=== PATIENT | female | born 1980 | race Caucasian/White ===

== ENCOUNTER 2021-02-03 21:10 | Observation (INO) | payer BC ==
[2021-02-03] MEDS ORDERED: MORPHINE SULFATE 4 MG/ML SYRINGE IV STA (21:39)
[2021-02-03] MEDS ORDERED: SODIUM CHLORIDE 0.9% 1,000 ML IV STA (21:39)
--- NOTE | 2021-02-03 21:59 | ED ---
Abdominal Pain HPI - General Chief Complaint: Abdominal Pain Stated Complaint: Abd pain Time Seen by Provider: 02/03/21 21:37 Source: patient, family, RN notes reviewed, old records reviewed Mode of arrival: ambulatory Limitations: no limitations - History of Present Illness Initial Comments: This is a 40-year-old female DF for evaluation patient is multiple complaints of abdominal pain severe right lower quadrant abdominal pain as well as right upper quadrant abdominal pain. Positive nausea no vomiting decreased bowel movements. Pain for a few days now progressively worsening. History of similar pain. No prior surgeries. Patient does have chills and swelling but denies fever MD Complaint: abdominal pain -: days(s) Location: diffuse, RLQ Radiation: RUQ Severity: severe Severity scale (1-10): 9 Quality: sharp Consistency: constant Improves With: nothing Worsens With: nothing Context: other (none) Associated Symptoms: nausea, constipation Treatments Prior to Arrival: other (none) - Related Data Home Medications Medication Instructions Recorded Confirmed Estarylla Control Pill 1 tab PO DAILY 01/14/20 01/14/20 Omeprazole 20 mg PO DAILY 01/14/20 01/14/20 Allergies Allergy/AdvReac Type Severity Reaction Status Date / Time No Known Allergies Allergy Verified 01/14/20 13:47 Review of Systems ROS Statement: Those systems with pertinent positive or pertinent negative responses have been documented in the HPI. ROS Other: All systems not noted in ROS Statement are negative. Past Medical History Additional Past Medical History / Comment(s): migraines, diff swallowing foot and pills, History of Any Multi-Drug Resistant Organisms: None Reported Additional Past Surgical History / Comment(s): oral surgery Past Anesthesia/Blood Transfusion Reactions: No Reported Reaction Past Psychological History: Anxiety Smoking Status: Vaper Past Alcohol Use History: None Reported Past Drug Use History: None Reported - Past Family History Father Family Medical History: Cancer General Exam Limitations: no limitations General appearance: alert, in no apparent distress, anxious Head exam: Present: atraumatic, normocephalic, normal inspection Eye exam: Present: normal appearance, PERRL, EOMI. Absent: scleral icterus, conjunctival injection, periorbital swelling ENT exam: Present: normal exam, mucous membranes moist Neck exam: Present: normal inspection. Absent: tenderness, meningismus, lymphadenopathy Respiratory exam: Present: normal lung sounds bilaterally. Absent: respiratory distress, wheezes, rales, rhonchi, stridor Cardiovascular Exam: Present: normal rhythm, tachycardia, normal heart sounds. Absent: systolic murmur, diastolic murmur, rubs, gallop, clicks GI/Abdominal exam: Present: soft, distended, tenderness, guarding (Right lower quadrant), normal bowel sounds. Absent: rebound, rigid Extremities exam: Present: normal inspection, full ROM, normal capillary refill. Absent: tenderness, pedal edema, joint swelling, calf tenderness Back exam: Present: normal inspection Neurological exam: Present: alert, oriented X3, CN II-XII intact Psychiatric exam: Present: normal affect, normal mood Skin exam: Present: warm, dry, intact, normal color. Absent: rash Course Vital Signs 02/03/21 02/04/21 21:32 00:42 Temperature 98.6 F 98.9 F Pulse Rate 107 H 90 Respiratory 18 18 Rate Blood Pressure 133/80 122/77 O2 Sat by Pulse 98 97 Oximetry - Reevaluation(s) Reevaluation #1: 02/04/21 03:50 Medical record is reviewed Reevaluation #2: 02/04/21 03:51 Symptoms are significantly improved here in the ER Reevaluation #3: 02/04/21 03:51 Patient is informed of results and questions answered - Consultations Consultation #1: (Dr. Newton who will see the patient Medical Decision Making - Medical Decision Making 40 female at ER sudden onset abdominal pain right lower quadrant severe abdominal pain progressively worsening. Patient does have appendicitis and will be admitted for surgical evaluation management - Lab Data Result diagrams: 02/03/21 21:55 02/03/21 21:55 Lab Results 02/03/21 02/03/21 02/03/21 Range/Units 21:55 21:55 21:55 WBC 10.9 H (3.8-10.6) k/uL RBC 3.66 L (3.80-5.40) m/uL Hgb 12.3 (11.4-16.0) gm/dL Hct 35.3 (34.0-46.0) % MCV 96.5 (80.0-100.0) fL MCH 33.5 (25.0-35.0) pg MCHC 34.7 (31.0-37.0) g/dL RDW 12.0 (11.5-15.5) % Plt Count 194 (150-450) k/uL MPV 8.6 Neutrophils % 73 % Lymphocytes % 19 % Monocytes % 5 % Eosinophils % 2 % Basophils % 0 % Neutrophils # 7.9 H (1.3-7.7) k/uL Lymphocytes # 2.0 (1.0-4.8) k/uL Monocytes # 0.5 (0-1.0) k/uL Eosinophils # 0.2 (0-0.7) k/uL Basophils # 0.0 (0-0.2) k/uL Sodium 140 (137-145) mmol/L Potassium 3.6 (3.5-5.1) mmol/L Chloride 106 (98-107) mmol/L Carbon Dioxide 23 (22-30) mmol/L Anion Gap 11 mmol/L BUN 6 L (7-17) mg/dL Creatinine 0.62 (0.52-1.04) mg/dL Est GFR (CKD-EPI)AfAm >90 (>60 ml/min/1.73 sqM) Est GFR (CKD-EPI)NonAf >90 (>60 ml/min/1.73 sqM) Glucose 142 H (74-99) mg/dL Plasma Lactic Acid Rick (0.7-2.0) mmol/L Calcium 9.1 (8.4-10.2) mg/dL Total Bilirubin 0.3 (0.2-1.3) mg/dL AST 26 (14-36) U/L ALT 24 (4-34) U/L Alkaline Phosphatase 59 (38-126) U/L Creatine Kinase 74 (30-135) U/L Troponin I (0.000-0.034) ng/mL Total Protein 6.9 (6.3-8.2) g/dL Albumin 3.9 (3.5-5.0) g/dL Amylase 45 (30-110) U/L Lipase 95 (23-300) U/L Urine Color Yellow Urine Appearance Clear (Clear) Urine pH 5.5 (5.0-8.0) Ur Specific [place] 1.017 (1.001-1.035) Urine Protein Trace H (Negative) Urine Glucose (UA) Negative (Negative) Urine Ketones Negative (Negative) Urine Blood Small H (Negative) Urine Nitrite Negative (Negative) Urine Bilirubin Negative (Negative) Urine Urobilinogen 2.0 (<2.0) mg/dL Ur Leukocyte Esterase Negative (Negative) Urine RBC 1 (0-5) /hpf Urine WBC 1 (0-5) /hpf Ur Squamous Epith Cells <1 (0-4) /hpf Urine Mucus Few H (None) /hpf 02/03/21 02/03/21 Range/Units 21:55 21:55 WBC (3.8-10.6) k/uL RBC (3.80-5.40) m/uL Hgb (11.4-16.0) gm/dL Hct (34.0-46.0) % MCV (80.0-100.0) fL MCH (25.0-35.0) pg MCHC (31.0-37.0) g/dL RDW (11.5-15.5) % Plt Count (150-450) k/uL MPV Neutrophils % % Lymphocytes % % Monocytes % % Eosinophils % % Basophils % % Neutrophils # (1.3-7.7) k/uL Lymphocytes # (1.0-4.8) k/uL Monocytes # (0-1.0) k/uL Eosinophils # (0-0.7) k/uL Basophils # (0-0.2) k/uL Sodium (137-145) mmol/L Potassium (3.5-5.1) mmol/L Chloride (98-107) mmol/L Carbon Dioxide (22-30) mmol/L Anion Gap mmol/L BUN (7-17) mg/dL Creatinine (0.52-1.04) mg/dL Est GFR (CKD-EPI)AfAm (>60 ml/min/1.73 sqM) Est GFR (CKD-EPI)NonAf (>60 ml/min/1.73 sqM) Glucose (74-99) mg/dL Plasma Lactic Acid Rick 1.6 (0.7-2.0) mmol/L Calcium (8.4-10.2) mg/dL Total Bilirubin (0.2-1.3) mg/dL AST (14-36) U/L ALT (4-34) U/L Alkaline Phosphatase (38-126) U/L Creatine Kinase (30-135) U/L Troponin I <0.012 (0.000-0.034) ng/mL Total Protein (6.3-8.2) g/dL Albumin (3.5-5.0) g/dL Amylase (30-110) U/L Lipase (23-300) U/L Urine Color Urine Appearance (Clear) Urine pH (5.0-8.0) Ur Specific [place] (1.001-1.035) Urine Protein (Negative) Urine Glucose (UA) (Negative) Urine Ketones (Negative) Urine Blood (Negative) Urine Nitrite (Negative) Urine Bilirubin (Negative) Urine Urobilinogen (<2.0) mg/dL Ur Leukocyte Esterase (Negative) Urine RBC (0-5) /hpf Urine WBC (0-5) /hpf Ur Squamous Epith Cells (0-4) /hpf Urine Mucus (None) /hpf - Radiology Data Radiology results: report reviewed (CT abdomen and pelvis positive for acute appendicitis), image reviewed Disposition Clinical Impression: Acute appendicitis Disposition: ADMITTED IP TO THIS [facility] Condition: Good Is patient prescribed a controlled substance at d/c from ED?: No
[2021-02-03 22:19] LABS: Basophils % (A) 0 %; Eosinophils # (A) 0.2 k/uL (0-0.7); Eosinophils % (A) 2 %; HCT 35.3 % (34.0-46.0); HGB 12.3 gm/dL (11.4-16.0); Lymphocytes % (A) 19 %; MCH 33.5 pg (25.0-35.0); MCHC 34.7 g/dL (31.0-37.0); MCV 96.5 fL (80.0-100.0); Mean Platelet Volume 8.6; Monocytes # (A) 0.5 k/uL (0-1.0); Monocytes % (A) 5 %; Neutrophils # (A) 7.9 k/uL (1.3-7.7); Neutrophils % (A) 73 %; Platelet Count 194 k/uL (150-450); RBC 3.66 m/uL (3.80-5.40); WBC 10.9 k/uL (3.8-10.6)
[2021-02-03 22:23] LABS: Appearance,Urine Clear (Clear); Bilirubin,Urine Negative (Negative); Blood,Urine Small (Negative); Color,Urine Yellow; Glucose,Urine (UA) Negative (Negative); Ketones,Urine Negative (Negative); Leukocyte Esterase,Urine Negative (Negative); Mucus,Urine Few /hpf; Nitrite,Urine Negative (Negative); PH, Urine 5.5 (5.0-8.0); Protein,Urine Trace (Negative); RBC,Urine 1 /hpf (0-5); Specific Gravity,Urine 1.017 (1.001-1.035); Squamous Epithelial Cell,Urine <1 /hpf (0-4); WBC,Urine 1 /hpf (0-5)
[2021-02-03 22:29] LABS: ALT 24 U/L (4-34); AST 26 U/L (14-36); African American GFR (CKD) >90 (>60 ml/min/1.73 sqM); Albumin 3.9 g/dL (3.5-5.0); Alkaline Phosphatase 59 U/L (38-126); Amylase 45 U/L (30-110); Anion Gap 11 mmol/L; Blood Urea Nitrogen 6 mg/dL (7-17); Calcium 9.1 mg/dL (8.4-10.2); Carbon Dioxide 23 mmol/L (22-30); Chloride 106 mmol/L (98-107); Creatine Kinase 74 U/L (30-135); Glucose 142 mg/dL (74-99); Lipase 95 U/L (23-300); Non-African American GFR(CKD) >90 (>60 ml/min/1.73 sqM); Potassium 3.6 mmol/L (3.5-5.1); Sodium 140 mmol/L (137-145); Total Bilirubin 0.3 mg/dL (0.2-1.3); Total Protein 6.9 g/dL (6.3-8.2)
--- NOTE | 2021-02-03 23:04 | CT ---
EXAMINATION TYPE: CT abdomen pelvis w con DATE OF EXAM: 02/03/2021 COMPARISON: None HISTORY: Right lower quadrant pain CT DLP: mGycm Automated exposure control for dose reduction was used. CONTRAST: Performed , patient injected with mL of . Isovue 100 mL. FINDINGS: Lung bases are clear of consolidation. There is some mild atelectasis at the lung bases. There is fat ty infiltration of the liver. Heart appears normal. There is no pericardial effusion. There is fatty infiltration of the liver. Spleen stomach pancreas gallbladder appear normal. The bile ducts are not dilated. There is no adrenal mass. Kidneys show satisfactory contrast opacification. There is no hydronephrosi s. Ureters are not dilated. There is no retroperitoneal adenopathy. Bladder distends smoothly. Uterus is anteverted. There is no free fluid in the pelvis. There is no pelvic mass. There is fat stranding in the right lower quadrant. The terminal ileum appears normal. There appears to be enlarged appendix that measures 9 mm. There is no free air. There is no ascites. Delayed images show normal renal excretion. The lumbar vertebra have normal spacing and alignment. Posterior elements are intact. There is no com pression fracture. Bony pelvis is intact. The hip joints are intact. There is no hip dysplasia. IMPRESSION: Inflammatory changes posterior to the cecum consistent with appendicitis. Possible rupture. Fatty infiltration of the liver. Enlarged liver measures 21.5 cm.
--- NOTE | 2021-02-03 23:17 | US ---
EXAMINATION TYPE: US gallbladder DATE OF EXAM: 02/03/2021 COMPARISON: CT CLINICAL HISTORY: pain. Pain. EXAM MEASUREMENTS: Liver Length: 19.0 cm Gallbladder Wall: 0.22 cm CBD: Not visualized. Right Kidney: 11.0 x 6.6 x 4.9 cm Limited due to gas and patient body habitus. Pancreas: Not well visualized due to gas. Liver: Appears enlarged. Increased echogenicity and attenuation. Coarse echotexture. Gallbladder: Limited. Internal echoes seen versus artifact. Evidence for sonographic Ordonez's sign: No CBD: Not visualized. Right Kidney: No hydronephrosis or masses seen IMPRESSION: There is some fatty infiltration of liver. No definite gallstones seen. No dilated ducts. Common bile duct not visualized.
[2021-02-04] MEDS ORDERED: ONDANSETRON 4 MG/2 ML VIAL IVP PRN ×2 (00:13→16:06)
[2021-02-04] MEDS ORDERED: AMPICILLIN-SULBACTAM 3 GM in SODIUM CHLORIDE 0.9% 100 ML IVPB STA (00:14)
[2021-02-04] MEDS: SODIUM CHLORIDE 0.9% 1,000 ML IV SCH ×3 (00:40→18:02)
[2021-02-04] MEDS: MORPHINE SULFATE 4 MG/ML SYRINGE IV PRN ×3 (01:42→21:40)
[2021-02-04] MEDS: PANTOPRAZOLE 40 MG/10 ML VIAL IV SCH (07:49)
[2021-02-04] MEDS ORDERED: AMPICILLIN-SULBACTAM 3 GM in SODIUM CHLORIDE 0.9% 100 ML IVPB SCH (09:00)
[2021-02-04] MEDS: ACETAMINOPHEN TAB 500 MG TAB PO SCH ×2 (11:57→17:53)
[2021-02-04] MEDS: KETOROLAC 15 MG/ML 1 ML VIAL IVP SCH ×2 (11:58→17:52)
--- NOTE | 2021-02-04 16:06 | P.GSHP ---
History of Present Illness H&P Date: 02/04/21 She reports feeling better since admission. She had RLQ pain since , 4 days ago including right upper quadrant abdominal pain. No Crohns or ulcerative colitis in family history. No nausea or vomiting. She tolerated dinner last night prior to coming to the hospital. CT scan independently reviewed by me with inflammatory changes along the cecum and ascending colon. CT report with possible rupture. Clinical history suspicious for rupture. IV antibiotics as first line of treatment per discussion. Will re-evaluate abdominal pain for tomorrow. Persistent or worsening abdominal pain, then appendectomy described. All questions addressed. Past Medical History Additional Past Medical History / Comment(s): migraines, diff swallowing foot and pills, History of Any Multi-Drug Resistant Organisms: None Reported Additional Past Surgical History / Comment(s): oral surgery Past Anesthesia/Blood Transfusion Reactions: No Reported Reaction Past Psychological History: Anxiety Smoking Status: Vaper Past Alcohol Use History: None Reported Past Drug Use History: None Reported - Past Family History Father Family Medical History: Cancer Medications and Allergies Home Medications Medication Instructions Recorded Confirmed Type Estarylla Control Pill 1 tab PO DAILY 01/14/20 02/04/21 History Ibuprofen [Motrin Ib] 200 mg PO Q8H PRN 02/04/21 02/04/21 History Allergies Allergy/AdvReac Type Severity Reaction Status Date / Time No Known Allergies Allergy Verified 02/04/21 08:57 Surgical - Exam Vital Signs Temp Pulse Resp BP Pulse Ox 98.6 F 107 H 18 133/80 98 02/03/21 21:32 02/03/21 21:32 02/03/21 21:32 02/03/21 21:32 02/03/21 21:32 Results - Labs 02/03/21 21:55 02/03/21 21:55 Abnormal Lab Results - Last 24 Hours (Table) 02/03/21 02/03/21 02/03/21 Range/Units 21:55 21:55 21:55 WBC 10.9 H (3.8-10.6) k/uL RBC 3.66 L (3.80-5.40) m/uL Neutrophils # 7.9 H (1.3-7.7) k/uL BUN 6 L (7-17) mg/dL Glucose 142 H (74-99) mg/dL Urine Protein Trace H (Negative) Urine Blood Small H (Negative) Urine Mucus Few H (None) /hpf Diabetes panel 02/03/21 Range/Units 21:55 Sodium 140 (137-145) mmol/L Potassium 3.6 (3.5-5.1) mmol/L Chloride 106 (98-107) mmol/L Carbon Dioxide 23 (22-30) mmol/L BUN 6 L (7-17) mg/dL Creatinine 0.62 (0.52-1.04) mg/dL Glucose 142 H (74-99) mg/dL Calcium 9.1 (8.4-10.2) mg/dL AST 26 (14-36) U/L ALT 24 (4-34) U/L Alkaline Phosphatase 59 (38-126) U/L Total Protein 6.9 (6.3-8.2) g/dL Albumin 3.9 (3.5-5.0) g/dL Calcium panel 02/03/21 Range/Units 21:55 Calcium 9.1 (8.4-10.2) mg/dL Albumin 3.9 (3.5-5.0) g/dL Pituitary panel 02/03/21 Range/Units 21:55 Sodium 140 (137-145) mmol/L Potassium 3.6 (3.5-5.1) mmol/L Chloride 106 (98-107) mmol/L Carbon Dioxide 23 (22-30) mmol/L BUN 6 L (7-17) mg/dL Creatinine 0.62 (0.52-1.04) mg/dL Glucose 142 H (74-99) mg/dL Calcium 9.1 (8.4-10.2) mg/dL Adrenal panel 02/03/21 Range/Units 21:55 Sodium 140 (137-145) mmol/L Potassium 3.6 (3.5-5.1) mmol/L Chloride 106 (98-107) mmol/L Carbon Dioxide 23 (22-30) mmol/L BUN 6 L (7-17) mg/dL Creatinine 0.62 (0.52-1.04) mg/dL Glucose 142 H (74-99) mg/dL Calcium 9.1 (8.4-10.2) mg/dL Total Bilirubin 0.3 (0.2-1.3) mg/dL AST 26 (14-36) U/L ALT 24 (4-34) U/L Alkaline Phosphatase 59 (38-126) U/L Total Protein 6.9 (6.3-8.2) g/dL Albumin 3.9 (3.5-5.0) g/dL
[2021-02-04 17:01] LABS: Basophils # (A) 0.1 k/uL (0-0.2); Basophils % (A) 1 %; Eosinophils # (A) 0.3 k/uL (0-0.7); Eosinophils % (A) 4 %; HCT 35.9 % (34.0-46.0); HGB 12.3 gm/dL (11.4-16.0); Lymphocytes % (A) 25 %; MCH 33.4 pg (25.0-35.0); MCHC 34.2 g/dL (31.0-37.0); MCV 97.8 fL (80.0-100.0); Mean Platelet Volume 8.7; Monocytes # (A) 0.4 k/uL (0-1.0); Monocytes % (A) 6 %; Neutrophils # (A) 4.8 k/uL (1.3-7.7); Neutrophils % (A) 62 %; Platelet Count 218 k/uL (150-450); RBC 3.67 m/uL (3.80-5.40); RDW 11.9 % (11.5-15.5); WBC 7.8 k/uL (3.8-10.6)
[2021-02-04] MEDS: metroNIDAZOLE-NS PMX 500 MG in SALINE 1 100ML.BAG IVPB SCH (17:53)
[2021-02-05] MEDS: KETOROLAC 15 MG/ML 1 ML VIAL IVP SCH ×5 (00:14→23:30)
[2021-02-05] MEDS: ACETAMINOPHEN TAB 500 MG TAB PO SCH ×6 (00:15→23:32)
[2021-02-05] MEDS: metroNIDAZOLE-NS PMX 500 MG in SALINE 1 100ML.BAG IVPB SCH ×6 (00:15→23:53)
[2021-02-05] MEDS: SODIUM CHLORIDE 0.9% 1,000 ML IV SCH ×3 (00:16→17:00)
[2021-02-05] MEDS: PIPERACILLIN-TAZOBACTAM 3.375 GM in SODIUM CHLORIDE 0.9% 100 ML IVPB SCH ×3 (01:32→17:28)
[2021-02-05] MEDS: PANTOPRAZOLE 40 MG/10 ML VIAL IV SCH (08:14)
--- NOTE | 2021-02-05 08:16 | P.HPADDEND ---
H&P Addendum H&P Addendum Date: 02/05/21 Patient also complains of right lower quadrant bowel pain although white blood cell count normal. We'll proceed with robotic appendectomy. Patient confirms not eating breakfast this morning and last meal last night.
[2021-02-05 09:56] LABS: Basophils # (A) 0.03 X 10*3/uL (0.00-0.10); Basophils % (A) 0.5 %; Eosinophils # (A) 0.14 X 10*3/uL (0.04-0.35); Eosinophils % (A) 2.3 %; HCT 35.8 % (37.2-46.3); HGB 11.2 g/dL (12.0-15.0); Lymphocytes # (A) 1.22 X 10*3/uL (0.90-5.00); MCH 32.1 pg (27.0-32.0); MCHC 31.3 g/dL (32.0-37.0); MCV 102.6 fL (80.0-97.0); Mean Platelet Volume 11.6 fL (9.5-12.2); Monocytes # (A) 0.43 X 10*3/uL (0.20-1.00); Neutrophils # (A) 4.28 X 10*3/uL (1.80-7.70); Platelet Count 211 X 10*3/uL (140-440); RBC 3.49 X 10*6/uL (4.10-5.20); RDW 11.9 % (11.5-14.5); WBC 6.11 X 10*3/uL (4.50-10.00)
[2021-02-05 10:54] LABS: African American GFR (CKD) 131.2 (60.0-200.0); Albumin 3.4 g/dL (3.80-4.90); Albumin/Globulin Ratio 1.62 (1.60-3.17); Anion Gap 11.8 mmol/L (4.00-12.00); BUN/Creat Ratio 8.33 Ratio (12.00-20.00); Calcium 7.9 mg/dL (8.7-10.3); Carbon Dioxide 21.2 mmol/L (21.6-31.8); Globulin 2.1 g/dL (1.6-3.3); Non-African American GFR(CKD) 113.2 (60.0-200.0); Potassium 4.2 mmol/L (3.5-5.5); Total Bilirubin 0.2 mg/dL (0.2-1.2); Total Protein 5.5 g/dL (6.2-8.2)
[2021-02-05] MEDS ORDERED: IV FLUID CONTINUATION 1,000 ML IV ONE (12:22)
[2021-02-05] MEDS ORDERED: DEXAMETHASONE SOD PHOSPHATE 4 MG/ML 1 ML VIAL IVP ONE (12:55)
[2021-02-05] MEDS ORDERED: ONDANSETRON 4 MG/2 ML VIAL IVP ONE (12:55)
[2021-02-05] MEDS ORDERED: HEPARIN SODIUM,PORCINE/PF 5,000 UNIT/0.5 ML SYRINGE SQ ONE (13:03)
[2021-02-05] MEDS ORDERED: HEPARIN SODIUM,PORCINE 5,000 UNIT/ML 1 ML VIAL SQ ONE (13:50)
[2021-02-05] MEDS ORDERED: PROPOFOL 10 MG/ML 20 ML VIAL IV ONE (14:10)
[2021-02-05] MEDS ORDERED: fentaNYL (PF) 50 MCG/ML 2 ML AMP ONE (14:10)
[2021-02-05] MEDS ORDERED: NEOSTIGMINE 1 MG/ML 10 ML VIAL ONE (14:10)
[2021-02-05] MEDS ORDERED: LIDOCAINE 1% INJ 10MG/ML (20 ML MDV) ONE (14:10)
[2021-02-05] MEDS ORDERED: HYDROmorphone (PF) 1 MG/ML ONE (14:10)
[2021-02-05] MEDS ORDERED: GLYCOPYRROLATE 0.2 MG/ML 2 ML VIAL ONE (14:10)
[2021-02-05] MEDS ORDERED: SUCCINYLCHOLINE CHLORIDE 100 MG/5 ML SYR IV ONE (14:10)
[2021-02-05] MEDS ORDERED: MIDAZOLAM 2 MG/2 ML VIAL ONE (14:10)
[2021-02-05] MEDS ORDERED: ROCURONIUM 10 MG/ML (5 ML VIAL) IV ONE (14:10)
[2021-02-05] MEDS ORDERED: SODIUM CHLORIDE 0.9% 100 ML with ceFAZolin 2,000 MG IV ONE ×4 (14:36)
[2021-02-05] MEDS ORDERED: BUPIVACAINE (PF) 0.25% 30 ML VIAL SQ ONE ×2 (14:40→14:43)
[2021-02-05] MEDS ORDERED: NALOXONE 0.4 MG/ML 1 ML VIAL IV PRN (15:45)
[2021-02-05] MEDS ORDERED: ACETAMINOPHEN IV (For NPO) 1,000 MG in EMPTY BAG 1 BAG IVPB ONE (15:45)
--- NOTE | 2021-02-05 15:57 | P.OP ---
Date of Procedure: 02/05/21 Description of Procedure: SURGEON: OMAR VALDIVIA MD Preoperative Diagnosis: 1. Acute appendicitis 2. Migraines Postoperative Diagnosis: 1. Acute appendicitis 2. Migraines 3. Hemoperitoneum right upper quadrant 4. Peritoneal adhesions 5. Hepatomegaly with fatty liver disease Procedure(s) Performed: 1. Robotic-assisted daVinci Xi laparoscopic appendectomy 2. Robotic-assisted daVinci Xi laparoscopic lysis of adhesions 3. Drainage of localized hemoperitoneum right upper quadrant Anesthesia: GETA, local Estimated Blood Loss (ml): 5 Pathology: other (appendix), anaerobic and aerobic culture peritoneal fluid Condition: stable Disposition: floor Operative Findings: 1. Acute appendicitis with severe periappendicitis and adhesions right lower quadrant 2. Terminal ileum unremarkable 3. Cecum unremarkable 4. No inguinal hernias 5. Localized hemoperitoneum at right upper quadrant drained. 6. Moderate yellow deposits with enlarged liver consistent with hepatomegaly with fatty liver disease. 7. INDICATIONS: The patient is a 40-year-old female who presents with acute appen dicitis. Benefits and risks, including infection, open surgery, and bleeding for additional surgery was discussed at length. Informed consent was obtained. All questions of the patient and family were answered. DESCRIPTION: The patient was transferred to the operating room and placed in supine position. The patient had previously voided. The abdomen was then prepped and draped in standard sterile fashion as Ioban was placed along the abdomen to minimize any contamination of skin floor. After a timeout protocol was performed, attention was then brought to the left upper quadrant whereby a 0 degree 5 mm laparoscopic trocar entry was performed. The abdominal cavity was entered and insufflated to 12 mmHg pressure, which was tolerated well. Diagnostic laparoscopy demonstrated no injury to bowel, viscera or mesentery. The liver was enlarged and fatty deposits consistent with fatty liver disease and hepatomegaly. Hemoperitoneum along the right side of the liver was identified. Next a robotic 8-mm trocar was placed along the left lower quadrant, 10-cm lateral to the midline. A 12 mm port was placed along the left upper quadrant and another 8-mm port left lateral abdominal wall. Ports were placed 8 cm apart from each other including 15-20 cm away from the target anatomy of the right pelvis. The patient was then placed in Trendelenburg position at least 7 down and right side up at least 7. The robotic da Bennie XI system was primed and docked from the left side of the patient. Using atraumatic graspers and vessel sealer, the robotic system was docked and primed as described. Instruments were interchanged by the design assistant including graspers, robotic stapler and vessel sealer. Next, attention was brought to identify the cecum. A systematic view within the abdominal cavity was started with the small bowel which was unremarkable. The base of the cecum was unremarkable. Left inguinal area was unremarkable. The right groin was unremarkable. The appendix was retrocecal coursing towards right upper quadrant behind the ascending colon with additional dissection required. Ssevere inflammation including localized adhesions of the right lower quadrant was confirmed. The tip of the appendix was dissected from its surrounding tissue with early necrosis along the tip of the appendix. The base of the appendix was unremarkable. The appendix was dissected free from its surrounding tissues. The appendix pocket was irrigated and drained of hemoperitoneum along the right upper quadrant. Blue 45 mm robotic staple loads were fired along the base of the appendix. The staple line was hemostatic. Hemostasis was checked prior to undocking the robot. The robot was undocked. I re-scrubbed into the case. The specimen was removed from the abdominal cavity with an Endo Catch bag through the 12 mm trocar at the left upper quadrant. The port site was closed with 0 Vicryl and Maximiliano Chen. All instruments and pneumoperitoneum were evacuated from the abdominal cavity. Local anesthetic was infiltrated to all wounds for postop analgesia. All incisions were also cleansed with diluted hydrogen peroxide. The incisions were closed with 4-0 Monocryl. Exofin glue was applied to the rest of the skin incisions. The patient had tolerated the procedure well. The patient was extubated successfully. The patient was transferred to the postanesthesia care unit in stable condition. Plan - Discharge Summary Discharge Rx Participant: Yes New Discharge Prescriptions: No Action Estarylla Control Pill 1 tab PO DAILY Ibuprofen [Motrin Ib] 200 mg PO Q8H PRN PRN Reason: Pain Discharge Medication List Estarylla Control Pill 1 tab PO DAILY 01/14/20 [History] Ibuprofen [Motrin Ib] 200 mg PO Q8H PRN 02/04/21 [History] Follow up Appointment(s)/Referral(s): Andrew Molina MD [Primary Care Provider] - 1-2 days
[2021-02-05 16:00] VITALS: RESP 16
[2021-02-06] MEDS: PIPERACILLIN-TAZOBACTAM 3.375 GM in SODIUM CHLORIDE 0.9% 100 ML IVPB SCH ×2 (00:58→08:35)
[2021-02-06] MEDS: SODIUM CHLORIDE 0.9% 1,000 ML IV SCH ×2 (03:15→06:21)
[2021-02-06] MEDS: metroNIDAZOLE-NS PMX 500 MG in SALINE 1 100ML.BAG IVPB SCH (05:54)
[2021-02-06] MEDS: KETOROLAC 15 MG/ML 1 ML VIAL IVP SCH (05:54)
[2021-02-06] MEDS: ACETAMINOPHEN TAB 500 MG TAB PO SCH (05:58)
[2021-02-06] MEDS: PANTOPRAZOLE 40 MG/10 ML VIAL IV SCH (08:33)
[2021-02-06 08:37] VITALS: BP 122/79; PULSE 57; TEMP 97.9
[2021-02-06] MEDS ORDERED: ENOXAPARIN 40 MG/0.4 ML SYRINGE SQ SCH (09:00)
--- NOTE | 2021-02-06 11:14 | P.DS ---
<Michelle Connors - Last Filed: 02/06/21 11:11> Providers Expected date of discharge: 02/06/21 Hospital Course: Discharge diagnosis 1. Acute appendicitis 2. Migraines 3. Hemoperitoneum right upper quadrant 4. Peritoneal adhesions 5. Hepatomegaly with fatty liver disease Hospital course This is a 40-year-old female with complaint of right lower quadrant abdominal pain and right upper quadrant abdominal pain for 4 days. Computed tomography scan reviewed by Dr. Fong showed inflammatory changes along the cecum and ascending colon. Possible rupture. Patient admitted to the hospital for an acute appendicitis. Patient status post Robotic-assisted daVinci Xi laparoscopic appendectomy, lysis of adhesions and Drainage of localized hemoperitoneum right upper quadrant. Patient reports that her pain is controlled. She is tolerating diet. She is passing gas. She is afebrile. She has been up and ambulating. She is stable for discharge. Physician Beer Coil Cleaner note has been reviewed by physician. Signing provider agrees with the documented findings, assessment, and plan of care. Patient Condition at Discharge: Good Plan - Discharge Summary Discharge Rx Participant: Yes New Discharge Prescriptions: New Ibuprofen [Motrin] 600 mg PO Q8HR PRN #30 tab PRN Reason: Pain Amoxicillin/Potassium Clav [Augmentin 875-125 Tablet] 1 tab PO Q12HR 5 Days #10 tab Acetaminophen Tab [Tylenol Tab] 650 mg PO Q4H PRN #30 tablet PRN Reason: Pain Continue Estarylla Control Pill 1 tab PO DAILY Discontinued Ibuprofen [Motrin Ib] 200 mg PO Q8H PRN PRN Reason: Pain Discharge Medication List Estarylla Control Pill 1 tab PO DAILY 01/14/20 [History] Acetaminophen Tab [Tylenol Tab] 650 mg PO Q4H PRN #30 tablet 02/06/21 [Rx] Amoxicillin/Potassium Clav [Augmentin 875-125 Tablet] 1 tab PO Q12HR 5 Days #10 tab 02/06/21 [Rx] Ibuprofen [Motrin] 600 mg PO Q8HR PRN #30 tab 02/06/21 [Rx] Follow up Appointment(s)/Referral(s): Andrew Molina MD [Primary Care Provider] - 02/08/21 2:00 pm (with luther ) Diamond Fong MD [STAFF PHYSICIAN] - 02/13/21 1:45 pm Activity/Diet/Wound Care/Special Instructions: Continue regular diet as tolerated. fluids are encouraged.You May shower. No bath tubs soaks or swimming for two weeks until February 19 No lifting pushing or pulling over 4 pounds in 4 weeks until March 05. Use Tylenol and ibuprofen scheduled for the next 24-48 hours for best pain relief. Use ice along incisions for the today to prevent swelling. Call physician with any questions comments concerns worsening returning symptoms, fever, not tolerating diet or fluids, pain not controlled by medications prescribed to you. Discharge Disposition: HOME SELF-CARE <Diamond Fong - Last Filed: 02/27/21 20:49> Providers Date of admission: 02/05/21 15:45 Attending physician: Diamond Fong Primary care physician: Andrew Molina MD - Discharge Diagnosis(es) (1) Migraine Status: Acute (2) Acute appendicitis Status: Acute Hospital Course: Postoperative Diagnosis: 1. Acute appendicitis 2. Migraines 3. Hemoperitoneum right upper quadrant 4. Peritoneal adhesions 5. Hepatomegaly with fatty liver disease INDICATIONS: The patient is a 40-year-old female who presented with acute appendicitis. She underwent appendectomy with additional findings of adhesions and hemoperitoneum. Post-operatively, her pain had improved. Prior to discharge she was hemodynamically stable. Procedures: Procedure(s) Performed: 1. Robotic-assisted daVinci Xi laparoscopic appendectomy 2. Robotic-assisted daVinci Xi laparoscopic lysis of adhesions 3. Drainage of localized hemoperitoneum right upper quadrant Anesthesia: GETA, local Estimated Blood Loss (ml): 5 Pathology: other (appendix), anaerobic and aerobic culture peritoneal fluid Condition: stable Disposition: floor Operative Findings: 1. Acute appendicitis with severe periappendicitis and adhesions right lower quadrant 2. Terminal ileum unremarkable 3. Cecum unremarkable 4. No inguinal hernias 5. Localized hemoperitoneum at right upper quadrant drained. 6. Moderate yellow deposits with enlarged liver consistent with hepatomegaly with fatty liver disease.
== END 2021-02-06 12:39 | disposition home or self-care (01) ==
LOC: EC 21:10 → 6NMEDSUR 02-04 00:15 → INTOOBSV 02-05 15:45 → OBSVTOIN 02-05 15:45 → 6PED 02-05 18:05 → UNDODISIN 02-06 12:39
PROVIDERS: ADMIT Surgery Plastic and Reconstructive Surgery; ATTEND Surgery Plastic and Reconstructive Surgery
DX: K35.33 Acute appendicitis with perforation, localized peritonitis, and gangrene, with abscess (principal); K36 Other appendicitis; G43.909 Migraine, unspecified, not intractable, without status migrainosus; K66.1 Hemoperitoneum; K66.0 Peritoneal adhesions (postprocedural) (postinfection); K76.0 Fatty (change of) liver, not elsewhere classified; R16.0 Hepatomegaly, not elsewhere classified; Z80.9 Family history of malignant neoplasm, unspecified; Z79.3 Long term (current) use of hormonal contraceptives; Z86.59 Personal history of other mental and behavioral disorders; K59.00 Constipation, unspecified
CPT/HCPCS: 44970; 49329; S2900; 36415; 74177; 76705; 80053; 81001; 81025; 82150; 82550; 83605; 83690; 84484; 85025; 87070; 87075; 87205; 88304; 96361; 96374; 99285

== ENCOUNTER → 2024-09-24 | Outpatient (CLI) | payer BC ==
--- NOTE | 2024-09-24 16:23 | MM ---
Reason for Exam: Screening (asymptomatic). Baseline mammogram. Patient History: Menarche at age 14. Patient has no children. Patient used Hormonal Contraceptives for 20 years. Maternal grandmother had breast cancer, age 85. Last menstrual period: 09/15/2024 Risk Values: [place] 5 year model risk: 0.8%. NCI Lifetime model risk: 9.7%. Prior Study Comparison: Patient's first Mammogram. Tissue Density: The breasts are heterogeneously dense, which may obscure small masses. Findings: Analyzed By CAD. Asymmetric density center outer right cc view posterior depth incompletely disperses on 3-D images. This may represent superimposition shadow but further evaluation is recommended. Otherwise, no suspicious microcalcification or other discrete abnormality is seen. Overall Assessment: Incomplete: need additional imaging evaluation, BI-RAD 0 Management: Special View Mammogram of the right breast. [facility] will attempt to contact patient to return for supplemental views and ultrasound if indicated. [facility], , 09/24/2024 4:20 PM. Electronically signed and approved by: Enedina Benitez M.D. Radiologist
== END | disposition home or self-care (01) ==
LOC: RADMAMWWP 14:36
PROVIDERS: ATTEND Family Medicine
DX: Z12.31 Encounter for screening mammogram for malignant neoplasm of breast (principal); R92.333 Mammographic heterogeneous density, bilateral breasts; Z80.3 Family history of malignant neoplasm of breast; Z92.0 Personal history of contraception
CPT/HCPCS: 77063; 77067

== ENCOUNTER → 2024-09-29 | Outpatient (CLI) | payer BC ==
--- NOTE | 2024-09-29 09:37 | MM ---
Reason for Exam: Additional evaluation requested from abnormal screening. Last screening mammogram was performed less than 1 month ago. Patient History: Menarche at age 14. Patient has no children. Patient used Hormonal Contraceptives for 20 years. Maternal grandmother had breast cancer, age 85. Risk Values: Yokasta 5 year model risk: 0.8%. NCI Lifetime model risk: 9.7%. Prior Study Comparison: 09/24/2024 Bilateral MG 3D screening mammo w/cad, [facility]. Tissue Density: Right: The breasts are heterogeneously dense, which may obscure small masses. Findings: Analyzed By CAD. Nodular density does not persist with certainty. Precautionary six-month follow-up is advised. Overall Assessment: Probably benign, BI-RAD 3 Management: Diagnostic Mammogram of the right breast in 6 months. . Results were given to the patient verbally at the time of exam. Patient should continue monthly self-breast exams. A clinical breast exam by your physician is recommended on an annual basis. This exam should not preclude additional follow-up of suspicious palpable abnormalities. Note on Yokasta scores and lifetime risk: 1. A Yokasta score greater than 3% is considered moderate risk. If this is the case, consider specialist referral to assess eligibility for a risk reducing agent. 2. If overall lifetime risk for the development of breast cancer is 20% or higher, the patient may qualify for future screening with alternating mammogram and breast MRI. [facility], , 09/29/2024 9:18 AM. Electronically signed and approved by: Miguel Rodriguez M.D. Radiologis
== END | disposition home or self-care (01) ==
LOC: RADMAMWWP 08:27
PROVIDERS: ATTEND Family Medicine
DX: R92.8 Other abnormal and inconclusive findings on diagnostic imaging of breast (principal); R92.331 Mammographic heterogeneous density, right breast; Z80.3 Family history of malignant neoplasm of breast; Z92.0 Personal history of contraception
CPT/HCPCS: 77061; 77065